=== PATIENT | male | born 1955 | race Two or more races ===

== ENCOUNTER 2017-03-24 10:25 | Day surgery (SDC) | payer BC ==
--- NOTE | 2017-03-20 12:16 | HISTORY AND PHYSICAL E ---
History and Physical NAME: DELILAH PAT : 1955 AGE: 61Y ADMITTED: 03/24/2017 ROOM: HISTORY OF PRESENT ILLNESS: I saw the patient in 2007, where he did have colon screening. SOCIAL HISTORY: . Quit smoking. Drinks socially. ALLERGIES: No known drug allergies. MEDICATIONS: Vitamins. PAST SURGICAL HISTORY: Shoulder surgery, left inguinal hernia at age 18. REVIEW OF SYSTEMS: CARDIAC: Negative. RESPIRATORY: Negative. ENDOCRINE: Negative. GASTROINTESTINAL: Colon screening. NEUROPSYCH: Negative. PHYSICAL EXAMINATION: GENERAL: Pleasant, alert, oriented. VITAL SIGNS: Blood pressure 120/80, pulse 80, respirations 20, temperature 98. HEAD, EARS, EYES, NOSE AND THROAT: Normal. NECK: Supple. LUNGS: Clear. ABDOMEN: Soft. NEUROLOGIC: Exam negative. CONCLUSION: 1. Colon screening. 2. Remote history of hyperplastic polyp. PLAN: Colonoscopy scheduled for 03/24/2017. DICTATING PHYSICIAN: RIDDHI DAVEY M.D. [id number] [id number] PHY#: [id number] ID: [id number] JOB#: [id number] ACCT: [id number] cc:RIDDHI DAVEY M.D. >
--- NOTE | 2017-03-20 14:33 | HISTORY AND PHYSICAL E ---
History and Physical NAME: DELILAH PAT : 1955 AGE: 61Y ADMITTED: 03/24/2017 ROOM: CHIEF COMPLAINT: Colon screening. HISTORY OF PRESENT ILLNESS: The patient presented at this time for colon screening. SOCIAL HISTORY: . Quit smoking. Drinks socially. PAST SURGICAL HISTORY: Shoulder surgery in 1991, left inguinal hernia. REVIEW OF SYSTEMS: HEAD, EARS, EYES, NOSE AND THROAT: Negative. Mild sinuses, hay fever. RESPIRATORY: Negative. CARDIAC: Negative. ENDOCRINE: Negative. GASTROINTESTINAL: Colon screening. ONCOLOGY/HEMATOLOGY: Negative. FAMILY HISTORY: Father had CA of the colon. Mom is alive, coronary artery disease. PHYSICAL EXAMINATION: GENERAL: Pleasant, alert, oriented. VITAL SIGNS: Blood pressure 120/80, pulse 80, respirations 18, temperature 98. HEAD, EARS, EYES, NOSE AND THROAT: Normal. NECK: Supple. LUNGS: Clear. ABDOMEN: Soft. NEUROLOGIC: Exam negative. CONCLUSION: Colon screening. PLAN: Colon, 03/24. DICTATING PHYSICIAN: RIDDHI DAVEY M.D. 5020M 1724 PHY#: [id number] ID: [id number] JOB#: [id number] ACCT: [id number] cc:RIDDHI DAVEY M.D. >
[~2017-03-24 10:25] MED LIST: EPINEPHRINE INJ 1 MG/10 ML DISP.SYRIN ONE; FLUMAZENIL INJ 0.5 MG/5 ML VIAL ONE; GLUCAGON,HUMAN RECOMB 1 MG INJ ONE; GLYCOPYRROLATE INJ 0.4 MG/2 ML VIAL ONE; NALOXONE HCL INJ/PF 0.4 MG/1 ML SDV ONE; ONDANSETRON HCL INJ/PF 4 MG/2 ML SDV ONE
[2017-03-24] MEDS: MIDAZOLAM 2 MG/2 ML INJ ONE ×3 (10:37→10:45)
[2017-03-24] MEDS: FENTANYL CITRATE INJ/PF 100 MCG/2 ML AMPUL ONE ×2 (10:39→10:44)
[2017-03-24 11:57] VITALS: BP 131/85
[2017-03-24 12:04] LABS: ABSOLUTE EOSINOPHILS # (AUTO) 0.2 10^3/uL (0.0-0.6); ABSOLUTE LYMPHOCYTES (AUTO) 1.3 10^3/uL (0.5-4.7); ABSOLUTE MONOCYTES (AUTO) 0.7 10^3/uL (0.1-1.4); BASOPHILS % (AUTO) 0.5 % (0-2); EOSINOPHILS % (AUTO) 2.5 % (0-6); HEMATOCRIT 48.1 % (37.9-51.0); HEMOGLOBIN 16.9 g/dL (13.5-17.0); HGB HCT DIFFERENCE 2.6; LYMPHOCYTES % (AUTO) 13.5 % (13-45); MEAN CORPUSCULAR HEMOGLOBIN 31.9 pg (27.0-33.4); MEAN CORPUSCULAR HGB CONC 35.1 g/dL (32.0-36.0); MEAN CORPUSCULAR VOLUME 91 fl (80-97); MONOCYTES % (AUTO) 7.6 % (3-13); RED BLOOD COUNT 5.29 10^6/uL (4.35-5.55); RED CELL DISTRIBUTION WIDTH 13.4 % (11.5-14.0); SEGMENTED NEUTROPHILS % (AUTO) 75.9 % (42-78); WHITE BLOOD COUNT 9.3 10^3/uL (4.0-10.5)
--- NOTE | 2017-03-24 14:44 | OPERATIVE REPORT E ---
Operative Report NAME: DELILAH PAT : 1955 AGE: 61Y DATE OF SURGERY: 03/24/2017 ROOM: PREOPERATIVE DIAGNOSIS: Colon screening. POSTOPERATIVE DIAGNOSES: 1. External hemorrhoids, mild. 2. Sigmoid diverticulosis, mild. PROCEDURE: Colonoscopy. SURGEON: RIDDHI DAVEY M.D. TISSUE REMOVED OR ALTERED: None. ANESTHESIA: Versed 6, fentanyl 150. DESCRIPTION OF PROCEDURE: Rectal exam: External hemorrhoids. Rectum otherwise normal. Sigmoid diverticulosis. Descending colon diverticulosis mild. Transverse colon normal. Ascending colon normal. Cecum normal. Moderate amount of full liquid stool lavage and suction. Evaluation of the cecum was completed. I did not see any polyps. Cecum, ascending colon normal. Transverse colon normal. Sigmoid diverticulosis. Rectal exam: External hemorrhoid. PLAN: Patient to full liquid diet today. Consideration followup colonoscopy after 10 years. DICTATING PHYSICIAN: RIDDHI DAVEY M.D. 1654M [id number] PHY#: [id number] ID: [id number] JOB#: [id number] ACCT: [id number] cc:[facility] MARIE RIDDHI DAVEY M.D. >
--- NOTE | 2017-03-24 14:48 | DISCHARGE SUMMARY E ---
Discharge Summary NAME: DELILAH PAT : 1955 AGE: 61Y ADMITTED: 03/24/2017 DISCHARGED: 03/24/2017 HISTORY AND HOSPITAL COURSE: The patient is a 61-year-old male who presented for colon screening. On today's colonoscopy done to the cecum, I found no polyps. He did have sigmoid and descending colon diverticulosis, with mild external hemorrhoids. DISCHARGE PLAN: Full liquid diet today. Baseline CBC. Consideration of colonoscopy after 10 years. DICTATING PHYSICIAN: RIDDHI DAVEY M.D. 5233M 1140 PHY#: [id number] ID: [id number] JOB#: [id number] ACCT: [id number] cc:RIDDHI DAVEY M.D. >
== END 2017-03-24 12:10 | disposition home or self-care (01) ==
LOC: END 10:25
PROVIDERS: ATTEND Specialist
PROC: 0DJD8ZZ Inspection of Lower Intestinal Tract, Via Natural or Artificial Opening Endoscopic (ICD-10-PCS; principal; 2017-03-24 10:00)
DX: Z12.11 Encounter for screening for malignant neoplasm of colon (principal); Z86.010 Personal history of colon polyps; K64.4 Residual hemorrhoidal skin tags; K57.30 Diverticulosis of large intestine without perforation or abscess without bleeding; Z87.891 Personal history of nicotine dependence
CPT/HCPCS: 45378; 36415; 85025; J2250; J3010; J1610; 45380; J0171; J2310; J2405; J3490

== ENCOUNTER 2017-05-27 13:42 | Emergency (ER) | payer BC ==
--- NOTE | 2017-05-27 15:01 | ER Document Report ---
ED Medical Screen (RME) - General Chief Complaint: Abdominal Pain Stated Complaint: ABDOMINAL PAIN Time Seen by Provider: 05/27/17 14:49 Notes: RME DISCLOSURE I have seen this patient as part of a Rapid Medical Evaluation and, if applicable, placed any initially appropriate orders. The patient will be seen and fully evaluated, including a full history and physical exam, by a provider ( in Main ED or Fast Track) when a room becomes available. 61-year-old male here with complaints of continued left lower quadrant abdominal pain intermittent ongoing for the past 6 days. Abdominal pain radiates from the left lower quadrant to the suprapubic region. He states he went to see his primary care physician who prescribed him antibiotics however he has not had improvement in his pain. His physician initially thought he had diverticulitis. Patient has not had any fevers chills nausea vomiting but did develop diarrhea after taking the antibiotics. He has no hematuria dysuria frequency hesitancy or flank pain. EXAM Mild tenderness to palpation left upper quadrant Mild to moderate tenderness to palpation left lower quadrant TRAVEL OUTSIDE OF THE [place] IN LAST 30 DAYS: No - Related Data Allergies/Adverse Reactions: No Known Allergies Allergy (Unverified 03/21/17 16:49) Past Medical History - Social History Frequency of alcohol use: Occasional Drug Abuse: None - Past Medical History Cardiac Medical History: Denies: Hx Coronary Artery Disease, Hx Heart Attack, Hx Hypertension Pulmonary Medical History: Denies: Hx Asthma, Hx Bronchitis, Hx COPD, Hx Pneumonia Neurological Medical History: Denies: Hx Cerebrovascular Accident, Hx Seizures Renal/ Medical History: Denies: Hx Peritoneal Dialysis Musculoskeltal Medical History: Denies Hx Arthritis - Immunizations Hx Diphtheria, Pertussis, Tetanus Vaccination: Yes Physical Exam - Vital signs Vitals: Temp Pulse Resp BP Pulse Ox 97.9 F 72 16 143/88 H 94 05/27/17 14:20 05/27/17 14:20 05/27/17 14:20 05/27/17 14:20 05/27/17 14:20 Course - Vital Signs Vital signs: Temp Pulse Resp BP Pulse Ox 97.9 F 72 16 143/88 H 94 05/27/17 14:20 05/27/17 14:20 05/27/17 14:20 05/27/17 14:20 05/27/17 14:20
[2017-05-27 15:45] LABS: ABSOLUTE EOSINOPHILS # (AUTO) 0.3 10^3/uL (0.0-0.6); ABSOLUTE LYMPHOCYTES (AUTO) 1.7 10^3/uL (0.5-4.7); ABSOLUTE MONOCYTES (AUTO) 0.6 10^3/uL (0.1-1.4); BASOPHILS % (AUTO) 0.5 % (0-2); EOSINOPHILS % (AUTO) 4.2 % (0-6); HEMATOCRIT 51.4 % (37.9-51.0); HEMOGLOBIN 17.7 g/dL (13.5-17.0); MEAN CORPUSCULAR HEMOGLOBIN 31.3 pg (27.0-33.4); MEAN CORPUSCULAR HGB CONC 34.4 g/dL (32.0-36.0); MEAN CORPUSCULAR VOLUME 91 fl (80-97); MONOCYTES % (AUTO) 7.4 % (3-13); PLATELET COUNT 178 10^3/uL (150-450); RED BLOOD COUNT 5.65 10^6/uL (4.35-5.55); RED CELL DISTRIBUTION WIDTH 13.4 % (11.5-14.0); SEGMENTED NEUTROPHILS % (AUTO) 65.9 % (42-78); TOTAL CELLS COUNTED % (AUTO) 100 %; WHITE BLOOD COUNT 7.5 10^3/uL (4.0-10.5)
[2017-05-27 16:05] LABS: ALANINE AMINOTRANSFERASE 40 U/L (21-72); ALBUMIN 4.9 g/dL (3.5-5.0); ALKALINE PHOSPHATASE 71 U/L (38-126); ANION GAP 12 (5-19); ASPARTATE AMINO TRANSFERASE 24 U/L (17-59); BILIRUBIN,DIRECT 0.4 mg/dL (0.0-0.4); BILIRUBIN,TOTAL 0.8 mg/dL (0.2-1.3); BLOOD UREA NITROGEN 16 mg/dL (7-20); CALCIUM 10.6 mg/dL (8.4-10.2); CARBON DIOXIDE 26 mmol/L (22-30); CHLORIDE 102 mmol/L (98-107); GLUCOSE 90 mg/dL (75-110); LIPASE 158.1 U/L (23-300); POTASSIUM 4.8 mmol/L (3.6-5.0); SODIUM 140.1 mmol/L (137-145); TOTAL PROTEIN 8.1 g/dL (6.3-8.2)
--- NOTE | 2017-05-27 16:12 | ER Document Report ---
ED General - General Chief Complaint: Abdominal Pain Stated Complaint: ABDOMINAL PAIN Time Seen by Provider: 05/27/17 14:49 Mode of Arrival: Ambulatory Information source: Patient Notes: 61-year-old male history of diverticulitis presents with complaints of left lower quadrant abdominal pain of 3-4 day duration. Patient notes he went to his primary care physician was placed on Bactrim. Patient denies any fevers or chills denies any blood in stool TRAVEL OUTSIDE OF THE [place] IN LAST 30 DAYS: No - HPI Onset: Last week Onset/Duration: Persistent, Worse Quality of pain: Achy Severity: Mild Pain Level: 1 Associated symptoms: Other Exacerbated by: Denies Relieved by: Denies Similar symptoms previously: Yes Recently seen / treated by doctor: Yes - Related Data Allergies/Adverse Reactions: No Known Allergies Allergy (Unverified 03/21/17 16:49) Past Medical History - Social History Smoking Status: Never Smoker Cigarette use (# per day): No Chew tobacco use (# tins/day): No Smoking Education Provided: No Frequency of alcohol use: Occasional Drug Abuse: None Family History: Reviewed & Not Pertinent Patient has suicidal ideation: No Patient has homicidal ideation: No - Past Medical History Cardiac Medical History: Denies: Hx Coronary Artery Disease, Hx Heart Attack, Hx Hypertension Pulmonary Medical History: Denies: Hx Asthma, Hx Bronchitis, Hx COPD, Hx Pneumonia Neurological Medical History: Denies: Hx Cerebrovascular Accident, Hx Seizures Renal/ Medical History: Denies: Hx Peritoneal Dialysis Musculoskeltal Medical History: Denies Hx Arthritis - Immunizations Hx Diphtheria, Pertussis, Tetanus Vaccination: Yes Review of Systems - Review of Systems Notes: REVIEW OF SYSTEMS: CONSTITUTIONAL : Denies fever, chills, or sweats. Denies recent illness. EENT: Denies eye, ear, throat, or mouth pain or symptoms. Denies nasal or sinus congestion or discharge. Denies throat, tongue, or mouth swelling or difficulty swallowing. CARDIOVASCULAR: Denies chest pain. Denies palpitations or racing or irregular heart beat. Denies ankle edema. RESPIRATORY: Denies cough, cold, or chest congestion. Denies shortness of breath, difficulty breathing, or wheezing. GASTROINTESTINAL: Admits to left lower quadrant abdominal pain GENITOURINARY: Denies difficulty urinating, painful urination, burning, frequency, blood in urine, or discharge. MUSCULOSKELETAL: Denies back or neck pain or stiffness. Denies joint pain or swelling. SKIN: Denies rash, lesions or sores. HEMATOLOGIC : Denies easy bruising or bleeding. LYMPHATIC: Denies swollen, enlarged glands. NEUROLOGICAL: Denies confusion or altered mental status. Denies passing out or loss of consciousness. Denies dizziness or lightheadedness. Denies headache. Denies weakness or paralysis or loss of use of either side. Denies problems with gait or speech. Denies sensory loss, numbness, or tingling. Denies seizures. PSYCHIATRIC: Denies anxiety or stress. Denies depression, suicidal ideation, or homicidal ideation. ALL OTHER SYSTEMS REVIEWED AND NEGATIVE. Dictation was performed using [employer] voice recognition software PHYSICAL EXAMINATION: GENERAL: Well-appearing, well-nourished and in no acute distress. HEAD: Atraumatic, normocephalic. EYES: Pupils equal round and reactive to light, extraocular movements intact, sclera anicteric, conjunctiva are normal. ENT: Nares patent, oropharynx clear without exudates. Moist mucous membranes. NECK: Normal range of motion, supple without lymphadenopathy LUNGS: Breath sounds clear to auscultation bilaterally and equal. No wheezes rales or rhonchi. HEART: Regular rate and rhythm without murmurs ABDOMEN: Soft, tender in the left lower quadrant no guarding no rebound Musculoskeletal: Normal range of motion, no pitting or edema. No cyanosis. NEUROLOGICAL: Cranial nerves grossly intact. Normal speech, normal gait. Normal sensory, motor exams PSYCH: Normal mood, normal affect. SKIN: Warm, Dry, normal turgor, no rashes or lesions noted. Physical Exam - Vital signs Vitals: Temp Pulse Resp BP Pulse Ox 97.9 F 72 16 143/88 H 94 05/27/17 14:20 05/27/17 14:20 05/27/17 14:20 05/27/17 14:20 05/27/17 14:20 Course - Re-evaluation Re-evalutation: 05/27/17 16:11 Lab work notes no significant abnormality except mild elevation in hemoglobin and hematocrit, patient overall looks well does not want any pain medication at this time CT is pending patient has probable diverticulitis uncomplicated and will be switched to Cipro and Flagyl if this becomes positive 05/27/17 17:09 CT notes no significant abnormality, patient will be started on Cipro and Flagyl pain control and nausea control is otherwise well-appearing After performing a Medical Screening Examination, I estimate there is LOW risk for ACUTE APPENDICITIS, BOWEL OBSTRUCTION, ACUTE CHOLECYSTITIS, PERFORATED DIVERTICULITIS, INCARCERATED HERNIA, PANCREATITIS, TESTICULAR TORSION or PERFORATED ULCER, thus I consider the discharge disposition reasonable. Also, there is no evidence or peritonitis, sepsis, or toxicity. I have reevaluated this patient multiple times and no significant life threatening changes are noted. The patient and I have discussed the diagnosis and risks, and we agree with discharging home with close follow-up with the understanding that symptoms and presentations can change. We also discussed returning to the Emergency Department immediately if new or worsening symptoms occur. We have discussed the symptoms which are most concerning (e.g., bloody stool, fever, changing or worsening pain, intractable vomiting - standard verbal up date) that necessitate immediate return. - Vital Signs Vital signs: Temp Pulse Resp BP Pulse Ox 97.9 F 72 16 143/88 H 94 05/27/17 14:20 05/27/17 14:20 05/27/17 14:20 05/27/17 14:20 05/27/17 14:20 - Laboratory Result Diagrams: 05/27/17 15:25 05/27/17 15:25 Laboratory results interpreted by me: 05/27/17 05/27/17 15:25 15:25 RBC 5.65 H Hgb 17.7 H Hct 51.4 H Calcium 10.6 H - Diagnostic Test Radiology reviewed: Image reviewed, Reports reviewed Discharge - Discharge Clinical Impression: LLQ pain, Hx of diverticulitis of colon Condition: Stable Disposition: HOME, SELF-CARE Instructions: Abdominal Pain ([facility]), Diverticulitis ([facility]) Prescriptions: Ciprofloxacin HCl [Cipro 500 mg Tablet] 500 mg PO BID #20 tablet Hydrocodone/Acetaminophen [[place] 5-325 mg Tablet] 1 tab PO Q6 #10 tablet Metoclopramide HCl [Reglan 10 mg Tablet] 1 - 2 tab PO Q6 #10 tablet Metronidazole [Flagyl 500 mg Tablet] 500 mg PO Q8 #30 tablet Referrals: TYLER ARORA MD [ACTIVE STAFF] - Follow up as needed
--- NOTE | 2017-05-27 17:05 | RADIOLOGY REPORT (SQ) ---
EXAM DESCRIPTION: CT ABD/PELVIS WITH IV ONLY COMPLETED DATE/TIME: 05/27/2017 4:49 pm REASON FOR STUDY: LLQ pain; diverticulitis vs stone? COMPARISON: None. TECHNIQUE: CT scan of the abdomen and pelvis performed using helical scanning technique with dynamic intravenous contrast injection. No oral contrast. Images reviewed with lung, soft tissue, and bone windows. Reconstructed coronal and sagittal MPR images reviewed. Delayed images for evaluation of the urinary system also acquired. All images stored on PACS. All CT scanners at this facility use dose modulation, iterative reconstruction, and/or weight based d osing when appropriate to reduce radiation dose to as low as reasonably achievable (ALARA). [facility]: Dose Right [facility]: CareDose [facility]: Dose Right [facility]: Teradose 4D [facility]: JustFab CONTRAST TYPE AND DOSE: contrast/concentration: Isovue 370.00 mg/ml; Total Contrast Delivered: 100.0 ml; Total Saline Delivered: 70.0 ml RENAL FUNCTION: BUN 16 creatinine 1.2 RADIATION DOSE: CT Rad equipment meets quality standard of care and radiation dose reduction techniq ues were employed. CTDIvol: 12.1 - 14.1 mGy. DLP: 1373 mGy-cm.. LIMITATIONS: None. FINDINGS: LOWER CHEST: No significant findings. No nodules or infiltrates. LIVER: Normal size. No masses. No dilated ducts. SPLEEN: Normal size. No focal lesions. PANCREAS: No masses. No significant calcifications. No adjacent inflammation or peripancreatic fluid collections. Pancreatic duct not dilated. GALLBLADDER: No identified stones by CT criteria. No inflammatory changes to suggest cholecystitis. ADRENAL GLANDS: No significant masses or asymmetry. RIGHT KIDNEY AND URETER: No solid masses. No significant calcifications. No hydronephrosis or hyd roureter. LEFT KIDNEY AND URETER: Small cyst. No solid masses. No significant calcifications. No hydroneph rosis or hydroureter. AORTA AND VESSELS: No aneurysm. No dissection. Renal arteries, SMA, celiac without stenosis. RETROPERITONEUM: No retroperitoneal adenopathy, hemorrhage or masses. BOWEL AND PERITONEAL CAVITY: No masses or inflammatory changes. No free fluid or peritoneal masses. APPENDIX: Normal. PELVIS: No mass. No free fluid. Normal bladder. ABDOMINAL WALL: No masses. No hernias. BONES: No significant or acute findings. OTHER: No other significant finding. IMPRESSION: NO ACUTE FINDING IN THE ABDOMEN OR PELVIS ON CT SCAN WITH IV CONTRAST. TECHNICAL DOCUMENTATION: JOB ID: [id number] Quality ID # [id number]: Final reports with documentation of one or more dose reduction techniques (e.g., Au tomated exposure control, adjustment of the mA and/or kV according to patient size, use of iterative reconstruction technique) 2010 to[employer]- All Rights Reserved
[2017-05-27 17:25] VITALS: BP 158/88
== END 2017-05-27 17:25 | disposition home or self-care (01) ==
LOC: ER 13:42
DX: K57.32 Diverticulitis of large intestine without perforation or abscess without bleeding (principal); R10.32 Left lower quadrant pain
CPT/HCPCS: 36415; 74177; 80053; 83690; 85025; 99284